=== PATIENT | male | born 1965 | race African-American/Black ===

== ENCOUNTER → 2016-08-11 | Outpatient (CLI) | payer OTHER ==
[~2016-08-11] MED LIST: ALBUTEROL2.5 MG/31 INH; ALLOPURINOL 10100 M1 PO; ASPIRIN325 PO; ATIVAN0.5 MG PO; CALCIUM CARBO1000 MG PO; CLARITIN10 MG PO; DUONEB 2.5-0.5 M3 ML INH; FOLIC ACID1 MG PO; HYDROCHLOROTHIA25 M2 PO; HYDROCODONE-AP1 EAC6 PO; HYDROCODONE-APA1 TA1 PO; IBUPROFEN 800800 M1 PO; LEVAQUIN 250 M250 MG PO; LEVAQUIN 500 M500 M2 PO; LISINOPRIL-HCT1 EAC2 PO; NORVASC10 MG PO; PREDNISONE 20 M20 MG PO; PREDNISONE50 MG PO; PRILOSEC 20 MG20 MG PO; PRINIVIL20 MG PO; PROTONIX40 M1 PO; PROVENTIL HFA6.7 G1 INH; TESSALON PERLE100 M1 PO; TUSSIONEX PENN473 ML PO; TYLENOL325 MG PO; ULTRAM 50MG TAB50 MG PO; VENTOLIN HFA 1818 GM INH; ZPAK PO; ZYRTEC10 MG PO
== END ==
LOC: RAD 14:24
DX: R05 Cough (principal)

== ENCOUNTER 2016-12-18 16:24 | Emergency (ER) | payer OTHER ==
[~2016-12-18] VITALS: Ht 177.8 cm; Wt 113.4 kg
--- NOTE | ~2016-12-18 | EKG ---
[address] [place] [address] ELECTROCARDIOGRAM REPORT Name: DENNIS DIAZ [id number] Admission: 12/18/16 Attend Phys: Discharge: 12/18/16 Date of : 67 Report #: [id number] THIS REPORT FOR: //name// [facility] ED Test Date: 2016-12-18 Test Time: 16:55:34 Pat Name: DENNIS DIAZ Department: Room: Gender: Tomato Grader: JYENNIFER : 1965 Requested By: Drake Zambrano Order Number: [id number] MD: Joseluis Hong Measurements Intervals [place] Rate: 66 P: 20 AR: 213 QRS: 9 QRSD: 97 T: 186 QT: 396 QTc: 415 Interpretive Statements Sinus rhythm Prolonged AR interval Left atrial enlargement Left ventricular hypertrophy with repolarization abnormality No previous ECG available for comparison Electronically Signed On 12-19-2016 8:12:35 CDT by Joseluis Hong [email or web address] <ELECTRONICALLY SIGNED> By: Joseluis Hong MD, [facility] 12/19/16 0812 1655 1655 Joseluis Hong MD, FACC /EPI
[2016-12-18 17:09] LABS: ABSOLUTE NEUTROPHILS 5.7 thou/uL (1.4-8.2); BASOPHILS 0.8 % (0.0-2.0); EOSINOPHILS 5.7 % (0.0-3.0); HEMATOCRIT 39.3 % (42.0-52.0); LYMPHOCYTES 22.5 % (24.0-44.0); MCH 29.8 pg (26.0-34.0); MCV 90.3 fL (80.0-100.0); MONOCYTES 10.4 % (1.0-8.0); PLATELET COUNT 247 thou/uL (150-400); POLYS 60.6 % (36.0-66.0); RBC 4.35 mil/uL (4.50-6.00); RDW 14.2 % (10.5-14.5); WBC 9.4 thou/uL (4.0-11.0)
[2016-12-18 17:15] LABS: MANUAL DIFF NO
[2016-12-18 17:19] LABS: ANION GAP 5 mmol/L (7-16); BUN 14 mg/dL (7-18); CALCIUM 8.7 mg/dL (8.5-10.1); CHLORIDE 105 mmol/L (98-107); CO2 30 mmol/L (21-32); CREATININE 0.8 mg/dL (0.7-1.3); GLUCOSE 111 mg/dL (74-106); POTASSIUM 3.9 mmol/L (3.5-5.1); SODIUM 140 mmol/L (136-145)
[2016-12-18 17:31] LABS: NT-PRO BRAIN NAT PEPTIDE 62 pg/mL (<300); TROPONIN-I < 0.04 ng/mL (<0.04-0.07)
== END 2016-12-18 19:41 | disposition home or self-care (01) ==
LOC: ER 16:24
PROVIDERS: Emergency Medicine
DX: R07.89 Other chest pain (principal); R06.02 Shortness of breath; I10 Essential (primary) hypertension; K21.9 Gastro-esophageal reflux disease without esophagitis; M06.9 Rheumatoid arthritis, unspecified; Z90.89 Acquired absence of other organs; Z88.0 Allergy status to penicillin

== ENCOUNTER 2017-05-10 12:23 | Emergency (ER) | payer OTHER ==
[~2017-05-10] VITALS: Ht 188 cm; Wt 167.8 kg
--- NOTE | ~2017-05-10 | EKG ---
[address] [place] [address] ELECTROCARDIOGRAM REPORT Name: DENNIS DIAZ Room #: DEP Lizett#: [id number] Admission: 05/10/17 Attend Phys: Discharge: 05/10/17 Date of : 67 Report #: [id number] THIS REPORT FOR: //name// 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
[2017-05-10] MEDS ORDERED: ULTRAM 50MG TAB50 MG PO (12:28)
[2017-05-10 12:50] LABS: HEMATOCRIT 40.8 % (42.0-52.0); HEMOGLOBIN 13.8 gm/dL (14.0-18.0); MCH 29.9 pg (26.0-34.0); MCHC 33.7 g/dL (28.0-37.0); MCV 88.6 fL (80.0-100.0); RBC 4.61 mil/uL (4.50-6.00); RDW 14.5 % (10.5-14.5); WBC 8.2 thou/uL (4.0-11.0)
[2017-05-10 13:02] LABS: ANION GAP 12 mmol/L (7-16); BUN 13 mg/dL (7-18); CALCIUM 9.2 mg/dL (8.5-10.1); CHLORIDE 103 mmol/L (98-107); CO2 25 mmol/L (21-32); CREATININE 0.9 mg/dL (0.7-1.3); GLUCOSE 115 mg/dL (74-106); POTASSIUM 4.2 mmol/L (3.5-5.1); SODIUM 140 mmol/L (136-145)
[2017-05-10 13:11] LABS: TROPONIN-I < 0.04 ng/mL (<0.04-0.07)
[2017-05-10] MEDS ORDERED: PREDNISONE 20 M20 MG PO (15:23)
== END 2017-05-10 15:56 | disposition home or self-care (01) ==
LOC: ER 12:23
PROVIDERS: Emergency Medicine
DX: R00.2 Palpitations (principal); R06.2 Wheezing; I10 Essential (primary) hypertension; M06.9 Rheumatoid arthritis, unspecified; K21.9 Gastro-esophageal reflux disease without esophagitis

== ENCOUNTER → 2017-07-20 | Outpatient (CLI) | payer OTHER ==
[2017-07-20 13:27] LABS: CALCIUM 8.8 mg/dL (8.5-10.1); CREATININE 1.3 mg/dL (0.7-1.3); POTASSIUM 3.8 mmol/L (3.5-5.1)
== END ==
LOC: RAD 12:47
PROVIDERS: Internal Medicine
DX: J45.51 Severe persistent asthma with (acute) exacerbation (principal); J98.11 Atelectasis; G47.33 Obstructive sleep apnea (adult) (pediatric)

== ENCOUNTER → 2017-07-24 | Outpatient (CLI) | payer OTHER ==
--- NOTE | ~2017-07-24 | 2DMMODE ---
[facility] [address] [email or web address] [address] 2 D/M-MODE ECHOCARDIOGRAM Name: DENNIS DIAZ Room #: REG [facility] [id number] Admission: 07/24/17 Attend Phys: Ryan Barber, Discharge: Date of : 67 Date of Service: 07/24/17 1223 Report #: [id number] THIS REPORT FOR: //name// APPROVED REPORT Study performed: 07/24/2017 09:47:06 EXAM: Comprehensive 2D, Doppler, and color-flow Echocardiogram Patient Location: Out-Patient Room #: Echo lab Status: routine BSA: 2.86 HR: 75 bpm BP: 172/104 mmHg Other Information Study Quality: Poor Indications Dyspnea Hypertension/HDD KYLE with lung scarring, Morbid obesity 2D Dimensions LVEF(%): 62.46 (>50%) IVSd: 15.04 (7-11mm) LVOT Diam: 22.67 (18-24mm) LVDd: 50.25 mm PWd: 14.54 (7-11mm) Ascending Ao: 29.79 (22-36mm) LVDs: 33.24 (25-40mm) Aortic Root: 27.58 mm Jimenez's LVEF: 62.46 % Aortic Valve AoV Peak Miguel.: 1.90 m/s AO Peak Gr.: 14.51 mmHg LVOT Max P.89 mmHg LVOT Max V: 1.21 m/s BHAVYA Vmax: 2.57 cm2 Mitral Valve E/A Ratio: 1.1 MV Decel. Time: 262.52 ms MV E Max Miguel.: 0.81 m/s MV A Miguel.: 0.73 m/s MV PHT: 76.13 ms IVRT: 87.66 ms [facility] [address] [place] [address] 2 D/M-MODE ECHOCARDIOGRAM Name: DENNIS DIAZ Room #: REG [facility]#: [id number] Admission: 07/24/17 Attend Phys: Ryan Barber, Discharge: Date of : 67 Date of Service: 07/24/17 1223 Report #: [id number] Pulmonary Valve PV Peak Miguel.: 1.42 m/s PV Peak Gr.: 8.09 mmHg Pulmonary Vein P Vein S: 0.53 m/s P Vein A: 0.26 m/s P Vein D: 0.43 m/s P Vein A Dur.: 87.7 msec P Vein S/D Ratio: 1.23 Left Ventricle The left ventricle is normal size. There is normal LV segmental wall motion. Mild to moderate concentric left ventricular hypertrophy. The left ventricular systolic function is normal. The left ventricular ejection fraction is within the normal range. LVEF is 60-65%. The left ventricular diastolic function is normal. Right Ventricle The right ventricle is normal size. The right ventricular systolic function is normal. Atria The left atrium size is normal. The right atrium size is normal. Aortic Valve The aortic valve is normal in structure. No aortic regurgitation is present. There is no aortic valvular stenosis. Mitral Valve The mitral valve is normal in structure. There is no mitral valve regurgitation noted. No evidence of mitral valve stenosis. Tricuspid Valve The tricuspid valve is normal in structure. There is no tricuspid valve regurgitation noted. Pulmonic Valve The pulmonary valve is normal in structure. There is no pulmonic valvular regurgitation. Great Vessels The aortic root is normal in size. The inferior vena cava is not well visualized. Pericardium There is no pericardial effusion. [facility] [address] [place] [address] 2 D/M-MODE ECHOCARDIOGRAM Name: JOEDENNIS CHAPA Room #: REG [facility] [id number] Admission: 07/24/17 Attend Phys: Ryan Barber, Discharge: Date of : 67 Date of Service: 07/24/17 1223 Report #: [id number] <Conclusion> The left ventricular systolic function is normal. There is normal LV segmental wall motion. LVEF 60-65%. Normal diastolic function The aortic valve is normal in structure. No aortic regurgitation or stenosis The mitral valve is normal in structure. No mitral valve regurgitation noted. Pulmonary artery pressure could not be reliably ascertained There is no pericardial effusion. <ELECTRONICALLY SIGNED> By: Joseluis Hong MD, [facility] 07/24/17 1223 122 22 Joseluis Hong MD, [facility] /INF
== END ==
LOC: CV 07:50
DX: I10 Essential (primary) hypertension (principal); G47.33 Obstructive sleep apnea (adult) (pediatric); E66.01 Morbid (severe) obesity due to excess calories

== ENCOUNTER 2018-02-09 21:43 | Emergency (ER) | payer OTHER ==
[~2018-02-09] VITALS: Ht 188 cm; Wt 172.4 kg
--- NOTE | ~2018-02-09 | EKG ---
[address] [place] [address] ELECTROCARDIOGRAM REPORT Name: JOEDENNIS EDUARD Room #: DEP Lizett#: [id number] Admission: 02/09/18 Attend Phys: Discharge: 02/10/18 Date of : 67 Report #: [id number] THIS REPORT FOR: //name// [facility] ED Test Date: 2018-02-09 Test Time: 21:41:01 Pat Name: DENNIS DIAZ Department: Room: Gender: M Regional Director: KKODJOVI : 1965 Requested By: Deandra Garland Order Number: [id number] MD: Joseluis Hong Measurements Intervals [place] Rate: 72 P: 25 HI: 204 QRS: 12 QRSD: 91 T: 149 QT: 391 QTc: 428 Interpretive Statements Sinus rhythm Borderline prolonged HI interval Probable left atrial enlargement Probable LVH with secondary repol abnrm Baseline wander in lead(s) I,II,aVR Compared to ECG 05/10/2017 12:25:15 Ventricular premature complex(es) no longer present Electronically Signed On 02-10-2018 8:20:04 CDT by Joseluis Hong [email or web address] <ELECTRONICALLY SIGNED> By: Joseluis Hong MD, [facility] 02/10/18 0820 214 40 Joseluis Hong MD, [facility] /EPI
[2018-02-09 21:56] LABS: ABSOLUTE NEUTROPHILS 8.5 thou/uL (1.4-8.2); HEMATOCRIT 39.9 % (42.0-52.0); HEMOGLOBIN 13.4 gm/dL (14.0-18.0); LYMPHOCYTES 23.7 % (24.0-44.0); MCH 30.3 pg (26.0-34.0); MCHC 33.5 g/dL (28.0-37.0); MCV 90.5 fL (80.0-100.0); MONOCYTES 7.5 % (1.0-8.0); PLATELET COUNT 255 thou/uL (150-400); POLYS 63.8 % (36.0-66.0); RBC 4.41 mil/uL (4.50-6.00); RDW 14.7 % (10.5-14.5); WBC 13.3 thou/uL (4.0-11.0)
[2018-02-09] MEDS ORDERED: LOSARTAN POTAS100 MG PO (22:02)
[2018-02-09 22:03] LABS: ANION GAP 3 mmol/L (7-16); BUN 19 mg/dL (7-18); CALCIUM 8.7 mg/dL (8.5-10.1); CHLORIDE 103 mmol/L (98-107); CO2 30 mmol/L (21-32); CREATININE 1.3 mg/dL (0.7-1.3); GLUCOSE 116 mg/dL (74-106); POTASSIUM 3.4 mmol/L (3.5-5.1); SODIUM 136 mmol/L (136-145)
[2018-02-09] MEDS ORDERED: IBUPROFEN 800800 M1 PO (22:03)
[2018-02-09] MEDS ORDERED: DEMADEX20 MG PO (22:04)
[2018-02-09] MEDS ORDERED: AZATHIOPRINE50 MG PO (22:04)
[2018-02-09] MEDS ORDERED: CELEXA20 MG PO (22:05)
[2018-02-09] MEDS ORDERED: RITUXAN100 MG/10 IV (22:06)
[2018-02-09] MEDS ORDERED: FOLIC ACID1 MG PO (22:07)
[2018-02-09] MEDS ORDERED: FOLIC ACID 40400 MC1 PO (22:07)
[2018-02-09] MEDS ORDERED: SULFAMETHOXAZO1 EACH PO (22:08)
[2018-02-09 22:11] LABS: ALBUMIN 3.9 g/dL (3.4-5.0); SGOT 16 U/L (15-37); SGPT 28 U/L (30-65); TOTAL BILIRUBIN 0.3 mg/dL (<0.1-1.0); TOTAL PROTEIN 8.1 g/dL (6.4-8.2); TROPONIN-I <0.06 ng/mL (<0.06)
[2018-02-10] MEDS ORDERED: MIRALAX17 GM PO ×2 (00:07→00:11)
== END 2018-02-10 00:44 | disposition home or self-care (01) ==
LOC: ER 21:43
PROVIDERS: Physician Assistant
DX: R07.1 Chest pain on breathing (principal); R10.13 Epigastric pain; E66.01 Morbid (severe) obesity due to excess calories; R63.0 Anorexia; K21.9 Gastro-esophageal reflux disease without esophagitis; M06.9 Rheumatoid arthritis, unspecified; I10 Essential (primary) hypertension; Z90.89 Acquired absence of other organs; Z88.0 Allergy status to penicillin; Z87.891 Personal history of nicotine dependence

== ENCOUNTER → 2018-11-29 | Outpatient (CLI) | payer OTHER ==
[~2018-11-29] MED LIST changes: +AZATHIOPRINE50 MG PO; +CELEXA20 MG PO; +DEMADEX20 MG PO; +FOLIC ACID 40400 MC1 PO; +LOSARTAN POTAS100 MG PO; +MIRALAX17 GM PO; +RITUXAN100 MG/10 IV; +SULFAMETHOXAZO1 EACH PO
--- NOTE | 2018-11-29 15:34 | 2DMMODE ---
[place] [address] 2 D/M-MODE ECHOCARDIOGRAM Name: JOEDENNIS EDUARD Room #: REG [facility]#: [id number] ������������� Admission: 11/29/18 ������������� Attend Phys: Bib Caceres MD Discharge: ��� ������������� ��� Date of : 67 Date of Service: 11/29/18 1533 �� Report #: [id number] �������� ��������������������������������������������[id number] THIS REPORT FOR: //name// APPROVED REPORT Study performed: 11/29/2018 14:32:51 EXAM: Comprehensive 2D, Doppler, and color-flow Echocardiogram Patient Location: Out-Patient Status: routine BSA: 2.90 HR: 67 bpm Rhythm: NSR Other Information Study Quality: Fair Technically limited study due to morbid obesity. Indications Hypertension. Echo Enhancing Agent Indication: Endocardial border delineation Agent(s) / Amount(s) Used: Optison 4 cc 2D Dimensions RVDd: 42.47 mm IVSd: 12.42 (7-11mm) LVDd: 47.44 mm PWd: 12.14 (7-11mm) Ascending Ao: 31.10 (22-36mm) LVDs: 28.53 (25-40mm) Aortic Root: 30.96 mm Volumes Left Atrial Volume (Systole) Single Plane 4CH: 57.99 mL Single Plane 2CH: 72.38 mL LA ESV Index: 24.00 mL/m2 Aortic Valve AoV Peak Miguel.: 1.85 m/s AO Peak Gr.: 13.74 mmHg LVOT Max P.51 mmHg LVOT Max V: 1.37 m/s [facility] [address] [place] [address] 2 D/M-MODE ECHOCARDIOGRAM Name: DENNIS DIAZ Room #: REG [facility]#: [id number] ������������� Admission: 11/29/18 ������������� Attend Phys: Bib Caceres MD Discharge: ��� ������������� ��� Date of : 67 Date of Service: 11/29/18 1533 �� Report #: [id number] �������� ��������������������������������������������[id number] Mitral Valve E/A Ratio: 1.6 MV Decel. Time: 248.30 ms MV E Max Miguel.: 1.01 m/s MV A Miguel.: 0.63 m/s MV PHT: 72.01 ms IVRT: 73.82 ms Pulmonary Valve PV Peak Miguel.: 1.10 m/s PV Peak Gr.: 4.86 mmHg Tricuspid Valve TR Peak Miguel.: 2.31 m/s TR Peak Gr.: 21.36 mmHg Left Ventricle The left ventricle is normal size. There is normal LV segmental wall motion. Mild concentric left ventricular hypertrophy. Left ventricular systolic function is normal. LVEF is 60-65%. Right Ventricle Right ventricle is not well visualized. Atria The left atrium size is normal. The right atrium size is normal. Aortic Valve The aortic valve is normal in structure. No aortic regurgitation is present. There is no aortic valvular stenosis. Mitral Valve The mitral valve is normal in structure. Mild mitral regurgitation. Tricuspid Valve The tricuspid valve is normal in structure. Mild tricuspid regurgitation. Estimated PAP is 21mmHg plus the right atrial pressure. Pulmonic Valve Pulmonic valve is not well visualized. Great Vessels The aortic root is normal in size. The ascending aorta is normal in [facility] [address] [place] [address] 2 D/M-MODE ECHOCARDIOGRAM Name: DENNIS DIAZ EDUARD Room #: REG [facility]#: [id number] ������������� Admission: 11/29/18 ������������� Attend Phys: Bib Caceres MD Discharge: ��� ������������� ��� Date of : 67 Date of Service: 11/29/18 1533 �� Report #: [id number] �������� ��������������������������������������������[id number] size. IVC is not well visualized. Pericardium There is no pericardial effusion. <Conclusion> The left ventricle is normal size. Mild concentric left ventricular hypertrophy. Left ventricular systolic function is normal. Right ventricle is not well visualized. The left atrium size is normal. The aortic valve is normal in structure. Mild mitral regurgitation. Mild tricuspid regurgitation. Estimated PAP is 21mmHg plus the right atrial pressure. ��������������������������������������������� <ELECTRONICALLY SIGNED> ���������������������������������������� By: Bib Caceres MD ��������������������������������������������� 11/29/18 1533 1533 1533 Bib Caceres MD /INF
== END ==
LOC: CV 09:01
DX: I08.1 Rheumatic disorders of both mitral and tricuspid valves (principal); Z88.0 Allergy status to penicillin

== ENCOUNTER → 2018-11-30 | Outpatient (CLI) | payer OTHER | LOC: RAD 17:52 | DX: M47.818 Spondylosis without myelopathy or radiculopathy, sacral and sacrococcygeal region (principal); M47.814 Spondylosis without myelopathy or radiculopathy, thoracic region; I70.0 Atherosclerosis of aorta; G89.29 Other chronic pain; Z88.0 Allergy status to penicillin ==

== ENCOUNTER → 2019-08-04 | Outpatient (CLI) | payer OTHER | LOC: RAD 14:44 | DX: J84.9 Interstitial pulmonary disease, unspecified (principal); J98.4 Other disorders of lung; J90 Pleural effusion, not elsewhere classified ==

== ENCOUNTER → 2019-08-16 | Outpatient (CLI) | payer OTHER | LOC: SJCVCIMAG 08:24 | DX: I36.1 Nonrheumatic tricuspid (valve) insufficiency (principal); G47.33 Obstructive sleep apnea (adult) (pediatric); J44.9 Chronic obstructive pulmonary disease, unspecified ==

== ENCOUNTER → 2019-10-28 | Outpatient (CLI) | payer OTHER | LOC: CAT 10-21 09:36 | DX: J84.9 Interstitial pulmonary disease, unspecified (principal); M05.79 Rheumatoid arthritis with rheumatoid factor of multiple sites without organ or systems involvement; J98.4 Other disorders of lung; J98.11 Atelectasis ==

== ENCOUNTER → 2019-12-12 | Outpatient (CLI) | payer OTHER ==
[~2019-12-12] VITALS: Ht 188 cm; Wt 165.6 kg
[~2019-12-12] MED LIST changes: +ANORO ELLIPTA1 EACH INH; +MELOXICAM15 MG PO; +MIRALAX119 GM PO; +VITAMIN D250 MC1 PO
--- NOTE | 2019-12-13 14:08 | PATH ---
[facility] [place] [address] PATHOLOGY RPT PROCEDURE Name: JOEDENNIS CHAPA Room #: REG [facility] [place]#: [id number] Admission: 12/12/19 Date of : 67 Discharge: Report #: [id number] Path Case #: [id number] [facility] Accession Number: [id number] . 01 Material submitted: . PART A: cecum - CECAL POLYP PART B: colon - POLYP AT TRANSVERSE COLON. Modifiers: transverse PART C: colon - POLYP AT DESCENDING COLON. Modifiers: descending . 01 Clinical history: . Pre-op diagnosis: History of polyps; constipation Post-op diagnosis: Colon polyps . 02 Diagnosis: A. Polyp, cecal polyp, endoscopic biopsy: - Tubular adenoma. - Negative for high-grade dysplasia. . B. Polyp, at transverse colon, endoscopic biopsy: - Tubular adenoma. - Negative for high-grade dysplasia. . C. Polyp, at descending colon, endoscopic biopsy: - Hyperplastic polyp. - Negative for dysplasia. (IUV:dolores; 12/13/2019) QMS 12/13/2019 1245 Local . 02 Electronically signed: . Juliana Mota MD, Pathologist NPI- [id number] . 01 Gross description: . A. The specimen is received in formalin, labeled "Dennis Hernandes, cecal polyp". Received are two segments of pale dupont soft tissue ranging in size from 0.3 to 0.6 cm in maximum dimensions. The specimen is submitted entirely in cassette A1. . B. The specimen is received in formalin, labeled "Dennis Hernandes, polyp at transverse colon". Received are four segments of pale dupont soft tissue ranging in size from 0.3 to 0.9 cm in maximum dimensions. The specimen is submitted entirely in cassette B1. . C. The specimen is received in formalin, labeled "Dennis Hernandes, polyp at descending colon". Received is a segment of pale dupont soft tissue measuring 0.9 cm in maximum dimensions. The specimen is submitted entirely in cassette [place] [address] PATHOLOGY RPT PROCEDURE Name: DENNIS HERNANDES [facility]#: [id number] Admission: 12/12/19 Date of : 67 Discharge: Report #: [id number] Path Case #: [id number] (CAA; 12/12/2019) QAC/QAC 12/12/2019 155 Local . 02 Pathologist provided ICD-10: D12.0, D12.3, K63.5 . 02 CPT . 190763, 021591, 080799 Specimen Comment: A courtesy copy of this report has been sent to [phone] Specimen Comment: [phone] Specimen Comment: Report sent to / DR VILA Performed at: [address], [place], [place] [id number] MD Samir Webber MD Phone: [phone] Performed at: [address] [id number] MD Juliana Mota MD Phone: [phone]
== END | disposition home or self-care (01) ==
LOC: GI 11:00
DX: K59.00 Constipation, unspecified (principal); D12.0 Benign neoplasm of cecum; D12.3 Benign neoplasm of transverse colon; I10 Essential (primary) hypertension; M06.9 Rheumatoid arthritis, unspecified; K21.9 Gastro-esophageal reflux disease without esophagitis; F32.9 Major depressive disorder, single episode, unspecified; F41.9 Anxiety disorder, unspecified; G47.30 Sleep apnea, unspecified; Z98.890 Other specified postprocedural states; Z79.899 Other long term (current) drug therapy; Z87.891 Personal history of nicotine dependence; Z86.010 Personal history of colon polyps
CPT/HCPCS: 62110; 62900

== ENCOUNTER → 2020-05-15 | Outpatient (CLI) | payer OTHER | LOC: SJCVC 15:29 | PROVIDERS: ATTEND Internal Medicine Cardiovascular Disease | DX: R06.00 Dyspnea, unspecified (principal); I10 Essential (primary) hypertension; J84.9 Interstitial pulmonary disease, unspecified; R60.9 Edema, unspecified ==

== ENCOUNTER 2020-11-27 21:21 | Emergency (ER) | payer OTHER ==
[~2020-11-27] VITALS: Ht 188 cm; Wt 167.8 kg
[2020-11-27 22:16] LABS: ABSOLUTE NEUTROPHILS 8.5 thou/uL (1.4-8.2); BASOPHILS 1.2 % (0.0-2.0); EOSINOPHILS 2.9 % (0.0-3.0); HEMATOCRIT 40.4 % (42.0-52.0); HEMOGLOBIN 13.3 gm/dL (14.0-18.0); LYMPHOCYTES 22.5 % (24.0-44.0); MCH 29.5 pg (26.0-34.0); MCHC 32.9 g/dL (28.0-37.0); MCV 89.7 fL (80.0-100.0); MONOCYTES 8.3 % (1.0-8.0); PLATELET COUNT 278 thou/uL (150-400); POLYS 65.1 % (36.0-66.0); RDW 14.6 % (10.5-14.5); WBC 13.1 thou/uL (4.0-11.0)
[2020-11-27 22:34] LABS: CALCIUM 8.9 mg/dL (8.5-10.1); CREATININE 1.5 mg/dL (0.7-1.3); POTASSIUM 3.8 mmol/L (3.5-5.1)
[2020-11-27 22:40] LABS: ALBUMIN 3.8 g/dL (3.4-5.0); TOTAL BILIRUBIN 0.6 mg/dL (0.2-1.0); TOTAL PROTEIN 7.8 g/dL (6.4-8.2)
[2020-11-27 22:55] LABS: URINE BILIRUBIN NEGATIVE (Negative); URINE BLOOD NEGATIVE (Negative); URINE CLARITY CLEAR; URINE COLOR YELLOW; URINE GLUCOSE-RANDOM* NEGATIVE (Negative); URINE KETONES NEGATIVE (Negative); URINE LEUKOCYTES-REFLEX NEGATIVE (Negative); URINE NITRITE-REFLEX NEGATIVE (Negative); URINE PROTEIN (DIPSTICK) NEGATIVE (Negative); URINE SPECIFIC GRAVITY 1.015 (1.005-1.035); URINE UROBILINOGEN 0.2 E.U./dl (0.2-1.0)
[2020-11-27 23:23] VITALS: BP 141/87
--- NOTE | 2020-11-28 07:00 | EKG ---
[address] [place] [address] ELECTROCARDIOGRAM REPORT Name: DENNIS DIAZ Room #: DEP Lizett#: [id number] Admission: 11/27/20 Attend Phys: Discharge: 11/27/20 Date of : 67 Report #: [id number] [facility] ED Test Date: 2020-11-27 Test Time: 22:11:21 Pat Name: DENNIS DIAZ Department: Room: Gender: M Director Of Federal Sales: JALYN : 1965 Requested By: Libia Chan Order Number: [id number] MD: Kumar Luciano Measurements Intervals [place] Rate: 75 P: 10 PA: 219 QRS: 7 QRSD: 94 T: 142 QT: 378 QTc: 423 Interpretive Statements Sinus rhythm Prolonged PA interval Probable left atrial enlargement Nonspecific T abnormalities, lateral leads Compared to ECG 02/09/2018 21:41:01 T-wave abnormality now present Electronically Signed On 11-28-2020 7:00:23 CDT by Kumar Luciano [email or web address] <ELECTRONICALLY SIGNED> By: Kumar Luciano MD, [facility] 11/28/20 0700 10 10 Kumar Luciano MD, FACC /EPI
== END 2020-11-27 23:29 | disposition home or self-care (01) ==
LOC: ER 21:21
PROVIDERS: Emergency Medicine
DX: R10.13 Epigastric pain (principal); I10 Essential (primary) hypertension; K21.9 Gastro-esophageal reflux disease without esophagitis; E11.9 Type 2 diabetes mellitus without complications; Z87.891 Personal history of nicotine dependence; Z88.0 Allergy status to penicillin; Z79.899 Other long term (current) drug therapy

== ENCOUNTER → 2020-12-06 | Outpatient (CLI) | payer OTHER | LOC: SJCVC 13:11 | PROVIDERS: ATTEND Internal Medicine Cardiovascular Disease | DX: R94.31 Abnormal electrocardiogram [ECG] [EKG] (principal); R60.9 Edema, unspecified; R06.00 Dyspnea, unspecified; J84.9 Interstitial pulmonary disease, unspecified; I10 Essential (primary) hypertension; E66.9 Obesity, unspecified; G47.33 Obstructive sleep apnea (adult) (pediatric); M06.9 Rheumatoid arthritis, unspecified; Z98.890 Other specified postprocedural states; Z88.0 Allergy status to penicillin; Z79.899 Other long term (current) drug therapy; Z87.891 Personal history of nicotine dependence; Z82.49 Family history of ischemic heart disease and other diseases of the circulatory system ==

== ENCOUNTER → 2020-12-06 | Outpatient (CLI) | payer OTHER | LOC: RAD 14:23 | PROVIDERS: ATTEND Internal Medicine | DX: R91.8 Other nonspecific abnormal finding of lung field (principal); R06.02 Shortness of breath; R06.00 Dyspnea, unspecified; J90 Pleural effusion, not elsewhere classified ==

== ENCOUNTER → 2020-12-18 | Outpatient (CLI) | payer OTHER | LOC: SJCVC 15:38 | PROVIDERS: ATTEND Internal Medicine Cardiovascular Disease | DX: K59.09 Other constipation (principal); K63.5 Polyp of colon; K21.9 Gastro-esophageal reflux disease without esophagitis; K58.1 Irritable bowel syndrome with constipation; E06.9 Thyroiditis, unspecified; J96.11 Chronic respiratory failure with hypoxia; J84.9 Interstitial pulmonary disease, unspecified; G47.33 Obstructive sleep apnea (adult) (pediatric); J84.10 Pulmonary fibrosis, unspecified; J43.9 Emphysema, unspecified; E55.9 Vitamin D deficiency, unspecified; E66.9 Obesity, unspecified ==

== ENCOUNTER → 2021-01-08 | Outpatient (CLI) | payer OTHER | LOC: SJCVCIMAG 08:13 | PROVIDERS: ATTEND Internal Medicine Cardiovascular Disease | DX: I34.0 Nonrheumatic mitral (valve) insufficiency (principal); I11.9 Hypertensive heart disease without heart failure; R94.31 Abnormal electrocardiogram [ECG] [EKG]; I44.0 Atrioventricular block, first degree; R06.00 Dyspnea, unspecified; J90 Pleural effusion, not elsewhere classified; J84.9 Interstitial pulmonary disease, unspecified; K21.9 Gastro-esophageal reflux disease without esophagitis; G47.33 Obstructive sleep apnea (adult) (pediatric); E66.9 Obesity, unspecified; M06.9 Rheumatoid arthritis, unspecified; Z88.0 Allergy status to penicillin; Z79.899 Other long term (current) drug therapy; Z87.891 Personal history of nicotine dependence; Z82.49 Family history of ischemic heart disease and other diseases of the circulatory system ==

== ENCOUNTER 2021-03-14 16:39 | Emergency (ER) | payer OTHER ==
[~2021-03-14] VITALS: Ht 188 cm; Wt 165.6 kg
[2021-03-14] MEDS ORDERED: LINZESS290 MCG PO (17:37)
[2021-03-14] MEDS ORDERED: FIBER POWDER368 GM PO (17:38)
[2021-03-14 17:58] LABS: ABSOLUTE NEUTROPHILS 8.3 thou/uL (1.4-8.2); BASOPHILS 0.9 % (0.0-2.0); HEMATOCRIT 37.4 % (42.0-52.0); HEMOGLOBIN 12.2 gm/dL (14.0-18.0); LYMPHOCYTES 21.9 % (24.0-44.0); MCH 29.3 pg (26.0-34.0); MCHC 32.6 g/dL (28.0-37.0); MCV 89.9 fL (80.0-100.0); MONOCYTES 7.2 % (1.0-8.0); PLATELET COUNT 302 thou/uL (150-400); RBC 4.15 mil/uL (4.50-6.00); RDW 13.9 % (10.5-14.5); WBC 12.4 thou/uL (4.0-11.0)
[2021-03-14 18:18] LABS: CALCIUM 8.7 mg/dL (8.5-10.1); CREATININE 1.2 mg/dL (0.7-1.3); POTASSIUM 3.9 mmol/L (3.5-5.1)
[2021-03-14 18:24] LABS: ALBUMIN 3.6 g/dL (3.4-5.0); TOTAL BILIRUBIN 0.3 mg/dL (0.2-1.0); TOTAL PROTEIN 7.6 g/dL (6.4-8.2)
[2021-03-14] MEDS ORDERED: LEVOFLOXACIN750 MG PO (21:29)
[2021-03-14 22:01] VITALS: BP 131/89
--- NOTE | 2021-03-15 09:35 | EKG ---
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: : 1965 Requested By: Laith Hernandes Order Number: [id number] MD: Joseluis Hong Measurements Intervals [place] Rate: 86 P: 9 [place]: 193 QRS: 6 QRSD: 98 T: 133 QT: 365 QTc: 437 Interpretive Statements Sinus rhythm full [place] interval Abnormal T, consider ischemia, lateral leads Compared to ECG 11/27/2020 22:11:21 No significant change was found Electronically Signed On 03-15-2021 9:34:49 CDT by Joseluis Hong [email or web address] <ELECTRONICALLY SIGNED> By: Joseluis Hong MD, [facility] 03/15/21 0934 1658 1658 Joseluis Hong MD, FAC /EPI
== END 2021-03-14 22:06 | disposition home or self-care (01) ==
LOC: ER 16:39
PROVIDERS: Emergency Medicine
DX: J18.9 Pneumonia, unspecified organism (principal); Z20.822 Contact with and (suspected) exposure to COVID-19; J90 Pleural effusion, not elsewhere classified; M19.90 Unspecified osteoarthritis, unspecified site; I10 Essential (primary) hypertension; K21.9 Gastro-esophageal reflux disease without esophagitis; E11.9 Type 2 diabetes mellitus without complications; Z79.2 Long term (current) use of antibiotics; Z90.89 Acquired absence of other organs; Z79.899 Other long term (current) drug therapy; Z88.0 Allergy status to penicillin; Z87.891 Personal history of nicotine dependence

== ENCOUNTER → 2021-07-22 | Outpatient (CLI) | payer OTHER ==
[~2021-07-22] MED LIST changes: +FIBER POWDER368 GM PO; +LEVOFLOXACIN750 MG PO; +LINZESS290 MCG PO
== END ==
LOC: RAD 14:54
PROVIDERS: ATTEND Internal Medicine
DX: J84.9 Interstitial pulmonary disease, unspecified (principal)

== ENCOUNTER → 2021-08-29 | Outpatient (CLI) | payer OTHER | LOC: SJCVC 15:13 | PROVIDERS: ATTEND Internal Medicine Cardiovascular Disease | DX: R06.00 Dyspnea, unspecified (principal); R94.31 Abnormal electrocardiogram [ECG] [EKG]; E66.9 Obesity, unspecified; G47.33 Obstructive sleep apnea (adult) (pediatric); R00.2 Palpitations; I10 Essential (primary) hypertension; R60.9 Edema, unspecified; J84.9 Interstitial pulmonary disease, unspecified; J90 Pleural effusion, not elsewhere classified; Z88.0 Allergy status to penicillin; Z79.899 Other long term (current) drug therapy; Z87.891 Personal history of nicotine dependence; Z72.89 Other problems related to lifestyle; Z82.49 Family history of ischemic heart disease and other diseases of the circulatory system ==